=== PATIENT | male | born 1955 | race Caucasian/White ===

== ENCOUNTER 2016-08-26 14:00 | Outpatient (RCR) | payer BC ==
[2016-06-03 16:42] VITALS: BP 155/95; PULSE 58; TEMP 98
[2016-06-17 15:41] VITALS: BP 144/78; PULSE 69; TEMP 98.2
[2016-07-02 15:06] VITALS: BP 151/81; PULSE 63; TEMP 97.5
[2016-07-15 17:07] VITALS: BP 149/76; PULSE 52; TEMP 98.3
[2016-07-29 14:52] VITALS: BP 130/78; PULSE 70; TEMP 98.1
[2016-08-09 10:37] VITALS: BP 135/79; PULSE 58; TEMP 98
[~2016-08-26] VITALS: Ht 182.9 cm; Wt 85.5 kg
[~2016-08-26 14:00] MED LIST: 00186-0372-20 IH; AMOXICILLIN 8751 TAB PO; ASPIRIN E.C. 8181 MG PO; CALCIUM 600MG+D1 TAB PO; GENTAMICIN180 MG/502 NS; LEVAQUIN 5500 MG/TA1 PO; LEVAQUIN 750MG750 M1 PO; MAXIDEX NAS; MEDROL4 MG PO; MUCINEX 60600 MG/TA1 PO; MUCINEX1200 MG PO; NASONEX SPRAY17 GM NAS; PATANOL OPHTHALM5 ML OU; PHENERGAN W/CO120 M1; PHENERGAN W/CO120 M1 PO; PREDNISONE20 MG; PREDNISONE20 MG PO; PRIL40 PO; RHINOCORT0.032 MG/1 NS; RT SPIRIVA18 MCG IH; SINGULAIR 110 MG/TAB PO; VENTOLIN0.09 MG IH; VITAMIN D 400400 IU PO; ZESTRIL 5MG5 MG PO; ZITHROMAX 250M250 MG PO; ZYRTEC 10MG10 MG PO
[2016-08-26 14:26] VITALS: BP 150/85; PULSE 62; TEMP 98.6
== END 2016-09-01 | disposition home or self-care (01) ==
LOC: EUO
DX: Z79.899 Other long term (current) drug therapy (principal)
CPT/HCPCS: J2357

== ENCOUNTER 2016-12-03 15:30 | Outpatient (RCR) | payer BC ==
[2016-09-09 15:00] VITALS: BP 137/70; PULSE 65; TEMP 98.3
[2016-09-23 15:26] VITALS: BP 132/78; PULSE 61; TEMP 97.5
[2016-10-07 08:45] VITALS: BP 141/81; PULSE 55; TEMP 98.3
[2016-10-22 14:47] VITALS: BP 130/76; PULSE 71; TEMP 97.8
[2016-11-01 10:01] VITALS: BP 147/98; PULSE 61; TEMP 97.6
[2016-11-18 14:49] VITALS: BP 137/75; PULSE 58; TEMP 97.2
[~2016-12-03] VITALS: Ht 182.9 cm; Wt 81.8 kg
[2016-12-03 16:20] VITALS: BP 133/81; PULSE 54; TEMP 98.4
== END 2016-12-08 | disposition home or self-care (01) ==
LOC: EUO
DX: J45.40 Moderate persistent asthma, uncomplicated (principal)
CPT/HCPCS: J2357

== ENCOUNTER 2017-03-11 13:30 | Outpatient (RCR) | payer BC ==
[2016-12-16 15:09] VITALS: BP 157/92; PULSE 61; TEMP 97.7
[2016-12-30 15:06] VITALS: BP 137/78; PULSE 61; TEMP 98.4
[2017-01-16 08:48] VITALS: BP 137/87; PULSE 65; TEMP 98.3
[2017-01-30 14:34] VITALS: BP 150/92; PULSE 61; TEMP 98.2
[2017-02-13 14:15] VITALS: BP 128/74; PULSE 64; TEMP 98
[2017-02-27 13:43] VITALS: BP 153/77; PULSE 56; TEMP 97.8
[~2017-03-11] VITALS: Ht 182.9 cm; Wt 87.7 kg
[2017-03-11 14:26] VITALS: BP 139/80; PULSE 63; TEMP 97.6
[2017-03-27] MEDS ORDERED: LEXAPRO 10MG10 MG PO (14:30)
== END 2017-03-16 ==
LOC: EUO
DX: J45.40 Moderate persistent asthma, uncomplicated (principal); Z79.899 Other long term (current) drug therapy
CPT/HCPCS: J2357

== ENCOUNTER 2017-05-22 13:30 | Outpatient (RCR) | payer BC ==
[2017-03-27 14:23] VITALS: BP 151/87; PULSE 61; TEMP 98
[2017-04-10 14:34] VITALS: BP 151/82; PULSE 59; TEMP 97.9
[2017-04-24 14:30] VITALS: BP 135/73; PULSE 63; TEMP 98.6
[~2017-05-22] VITALS: Ht 182.9 cm; Wt 87.9 kg
[~2017-05-22 13:30] MED LIST changes: +LEXAPRO 10MG10 MG PO
[2017-05-22 13:42] VITALS: BP 167/79; PULSE 56; TEMP 98.5
== END 2017-05-22 14:53 | disposition home or self-care (01) ==
LOC: EUO 13:30
DX: Z79.899 Other long term (current) drug therapy (principal)
CPT/HCPCS: J2357

== ENCOUNTER 2017-09-04 13:30 | Outpatient (RCR) | payer BC ==
[2017-06-10 15:02] VITALS: BP 147/76; PULSE 65; TEMP 98.8
[2017-06-24 13:54] VITALS: BP 145/92; PULSE 68; TEMP 98.3
[2017-07-24 14:42] VITALS: BP 128/75; PULSE 61; TEMP 98.2
[2017-08-07 15:27] VITALS: BP 144/83; PULSE 58; TEMP 98.7
[2017-08-21 14:28] VITALS: BP 132/76; PULSE 72
[~2017-09-04] VITALS: Ht 182.9 cm; Wt 86.0 kg
[~2017-09-04 13:30] MED LIST changes: +HCTZ12.5TAB PO
[2017-09-04 14:37] VITALS: BP 134/80; PULSE 72; TEMP 98.7
== END 2017-09-04 15:22 | disposition home or self-care (01) ==
LOC: EUO 13:30
DX: Z79.899 Other long term (current) drug therapy (principal)
CPT/HCPCS: J2357

== ENCOUNTER → 2018-01-23 | Outpatient (CLI) | payer BC | LOC: COL.RAD 14:17 | DX: J98.4 Other disorders of lung (principal) ==

== ENCOUNTER 2020-09-19 14:51 | Outpatient (CLI) | payer MEDICARE ==
[~2020-09-19] VITALS: Ht 182.9 cm; Wt 82.0 kg
[~2020-09-19 14:51] MED LIST changes: +CALCIUM 600 MG1 EAC2 PO; -CALCIUM 600MG+D1 TAB PO
[2020-09-19 16:19] VITALS: BP 126/80; PULSE 62; TEMP 98.3
== END 2020-09-19 16:21 | disposition home or self-care (01) ==
LOC: EUO 14:51
DX: J45.50 Severe persistent asthma, uncomplicated (principal); Z79.899 Other long term (current) drug therapy
CPT/HCPCS: J2182

== ENCOUNTER 2020-10-17 14:58 | Outpatient (CLI) | payer MEDICARE ==
[~2020-10-17] VITALS: Ht 182.9 cm; Wt 89.4 kg
[2020-10-17] MEDS ORDERED: 00186-0370-20 IH (15:26)
[2020-10-17] MEDS ORDERED: PRIL40 PO (15:29)
[2020-10-17] MEDS ORDERED: CRESTOR20 MG PO (15:30)
[2020-10-17] MEDS ORDERED: PRINZIDE 12.5 M1 TA1 PO (15:30)
[2020-10-17] MEDS ORDERED: NUCALA100 MG/1 M SQ (15:31)
[2020-10-17] MEDS ORDERED: ALLEGRA 180MG180 MG PO (15:32)
[2020-10-17] MEDS ORDERED: ASTELIN NASAL S34 ML NS (15:33)
[2020-10-17] MEDS ORDERED: PATADAY 2.5 ML2.5 ML OU (15:33)
[2020-10-17 15:35] VITALS: BP 143/82; PULSE 53; TEMP 98.4
== END 2020-10-17 17:15 | disposition home or self-care (01) ==
LOC: EUO 14:58
DX: Z79.899 Other long term (current) drug therapy (principal)
CPT/HCPCS: J2182

== ENCOUNTER 2020-11-14 14:53 | Outpatient (CLI) | payer MEDICARE ==
[~2020-11-14] VITALS: Ht 182.9 cm; Wt 90.2 kg
[~2020-11-14 14:53] MED LIST changes: +00186-0370-20 IH; +ALLEGRA 180MG180 MG PO; +ASTELIN NASAL S34 ML NS; +CRESTOR20 MG PO; +NUCALA100 MG/1 M SQ; +PATADAY 2.5 ML2.5 ML OU; +PRINZIDE 12.5 M1 TA1 PO
[2020-11-14 15:24] VITALS: BP 123/72; PULSE 58; TEMP 97.7
[2020-11-14] MEDS ORDERED: SINGULAIR 110 MG/TAB PO (16:11)
== END 2020-11-14 16:28 | disposition home or self-care (01) ==
LOC: EUO 14:53
DX: Z79.899 Other long term (current) drug therapy (principal)
CPT/HCPCS: J2182

== ENCOUNTER 2020-12-12 12:58 | Outpatient (CLI) | payer MEDICARE ==
[~2020-12-12] VITALS: Ht 182.9 cm; Wt 88.0 kg
[2020-12-12 13:50] VITALS: BP 147/94; PULSE 53; TEMP 97.6
== END 2020-12-12 17:39 | disposition home or self-care (01) ==
LOC: EUO 12:58
DX: Z79.899 Other long term (current) drug therapy (principal)
CPT/HCPCS: J2182

== ENCOUNTER 2021-01-09 13:17 | Outpatient (CLI) | payer MEDICARE ==
[~2021-01-09] VITALS: Ht 182.9 cm; Wt 89.8 kg
[2021-01-09 13:43] VITALS: BP 133/68; PULSE 79; TEMP 98.7
== END 2021-01-09 14:06 | disposition home or self-care (01) ==
LOC: EUO 13:17
DX: Z98.890 Other specified postprocedural states (principal)
CPT/HCPCS: J2182

== ENCOUNTER 2021-02-06 13:04 | Outpatient (CLI) | payer MEDICARE ==
[~2021-02-06] VITALS: Ht 182.9 cm; Wt 88.9 kg
[2021-02-06 13:11] VITALS: BP 149/82; PULSE 52; TEMP 98.2
== END 2021-02-06 13:48 | disposition home or self-care (01) ==
LOC: EUO 13:04
DX: Z79.899 Other long term (current) drug therapy (principal)
CPT/HCPCS: J2182

== ENCOUNTER 2021-03-06 13:11 | Outpatient (CLI) | payer MEDICARE ==
[~2021-03-06] VITALS: Ht 182.9 cm; Wt 89.4 kg
[2021-03-06 13:36] VITALS: BP 163/73; PULSE 54; TEMP 98.3
== END 2021-03-06 13:48 | disposition home or self-care (01) ==
LOC: EUO 13:11
DX: Z79.899 Other long term (current) drug therapy (principal)
CPT/HCPCS: J2182

== ENCOUNTER 2021-05-02 13:06 | Outpatient (CLI) | payer MEDICARE ==
[~2021-05-02] VITALS: Ht 182.9 cm; Wt 88.0 kg
[2021-05-02 13:34] VITALS: BP 149/97; PULSE 54; TEMP 98.3
== END 2021-05-02 14:10 ==
LOC: EUO 13:06
DX: Z79.899 Other long term (current) drug therapy (principal)
CPT/HCPCS: J2182

== ENCOUNTER 2021-06-05 13:04 | Outpatient (RCR) | payer MEDICARE ==
[~2021-06-05] VITALS: Ht 182.9 cm; Wt 88.0 kg
[2021-06-05 13:28] VITALS: BP 139/76; PULSE 62; TEMP 97.6
== END 2021-06-05 14:42 | disposition home or self-care (01) ==
LOC: EUO 13:04
DX: Z79.899 Other long term (current) drug therapy (principal)
CPT/HCPCS: J2182; J2357

== ENCOUNTER 2021-07-09 13:55 | Outpatient (CLI) | payer MEDICARE ==
[~2021-07-09] VITALS: Ht 182.9 cm; Wt 90.2 kg
[2021-07-09] MEDS ORDERED: ZYRTEC 10MG10 MG PO (14:35)
[2021-07-09 14:36] VITALS: BP 145/81; PULSE 59; TEMP 98.5
== END 2021-07-09 16:01 | disposition home or self-care (01) ==
LOC: EUO 13:55
DX: Z79.899 Other long term (current) drug therapy (principal)
CPT/HCPCS: J2182

== ENCOUNTER 2021-08-06 14:07 | Outpatient (CLI) | payer MEDICARE ==
[~2021-08-06] VITALS: Ht 182.9 cm; Wt 88.9 kg
[2021-08-06 15:00] VITALS: BP 138/83; PULSE 61; TEMP 98.1
== END 2021-08-06 18:00 ==
LOC: EUO 14:07
DX: Z79.899 Other long term (current) drug therapy (principal)
CPT/HCPCS: J2182

== ENCOUNTER 2021-09-04 13:31 | Outpatient (CLI) | payer MEDICARE ==
[~2021-09-04] VITALS: Ht 182.9 cm; Wt 88.8 kg
[2021-09-04 13:54] VITALS: BP 136/81; PULSE 64; TEMP 97.6
== END 2021-09-04 14:16 | disposition home or self-care (01) ==
LOC: EUO 13:31
DX: Z51.81 Encounter for therapeutic drug level monitoring (principal)
CPT/HCPCS: J2182

== ENCOUNTER 2021-10-12 13:26 | Outpatient (CLI) | payer MEDICARE ==
[~2021-10-12] VITALS: Ht 182.9 cm; Wt 87.7 kg
[2021-10-12 14:29] VITALS: BP 116/76; PULSE 54; TEMP 98.6
== END 2021-10-16 16:45 ==
LOC: EUO 13:26
DX: Z51.81 Encounter for therapeutic drug level monitoring (principal)
CPT/HCPCS: J2182

== ENCOUNTER 2021-11-21 18:33 | Emergency (ER) | payer MEDICARE ==
[~2021-11-21] VITALS: Ht 182.9 cm; Wt 87.7 kg
[2021-11-21 19:26] LABS: BASO # 0.1 K/mm3 (0.0-0.2); BASO % 0.4 % (0.0-2.0); EOS % 0.1 % (0.0-4.0); GRAN # 12.5 K/mm3 (1.4-6.5); GRAN % 84.8 % (42.2-75.2); HEMATOCRIT 43.7 % (42.0-52.0); HEMOGLOBIN 14.8 g/dl (13.5-18.0); LYMPH # 1.3 K/mm3 (1.2-3.4); LYMPH % 9.1 % (20.0-51.0); MEAN CELL VOLUME 86 fl (80.0-100.0); MEAN CORPUSCULAR HEMOGLOBIN 29 pg (27-31); MEAN CORPUSCULAR HGB CONC 34 g/dl (33.0-37.0); MEAN PLATELET VOLUME 9.1 fl (7.4-10.4); MONO # 0.8 K/mm3 (0.1-0.6); MONO % 5.1 % (1.7-9.3); PLATELET COUNT 303 K/mm3 (130-400); RED BLOOD COUNT 5.08 M/mm3 (4.20-5.60); REDCELL DISTRIBUTION WIDTH-CV 13.7 % (11.5-14.5)
[2021-11-21 19:37] LABS: ALANINE AMINOTRANSFERASE 12 U/L (0-55); ALBUMIN 3.8 gm/dL (3.4-4.8); ALKALINE PHOSPHATASE 76 U/L (40-150); ANION GAP 13 mmol/L (7-16); AST,SGOT 17 U/L (5-34); BILIRUBIN,TOTAL 0.3 mg/dL (0.2-1.2); BLOOD UREA NITROGEN 22 mg/dL (8-26); CALCIUM 9.4 mg/dL (8.4-10.2); CARBON DIOXIDE 22 mmol/L (23-31); CHLORIDE 104 mmol/L (98-107); CREATININE, serum 1.04 mg/dL (0.72-1.25); GLUCOSE 139 mg/dL (70-99); POTASSIUM 3.5 mmol/L (3.5-4.5); SODIUM 139 mmol/L (136-145); TOTAL PROTEIN 6.9 gm/dL (6.2-8.1)
[2021-11-21 19:45] LABS: TROPONIN-I < 0.010 ng/mL (0.00-0.033)
[2021-11-21 21:31] VITALS: BP 142/90; PULSE 53; TEMP 98.9
[2021-11-21] MEDS ORDERED: NAC600 MG PO (21:41)
== END 2021-11-21 21:35 | disposition home or self-care (01) ==
LOC: COL.ER 18:33
PROVIDERS: Nurse Practitioner Primary Care
DX: J98.11 Atelectasis (principal); J98.09 Other diseases of bronchus, not elsewhere classified; B34.8 Other viral infections of unspecified site; Z88.0 Allergy status to penicillin

== ENCOUNTER 2021-11-28 09:14 | Outpatient (CLI) | payer MEDICARE ==
[~2021-11-28] VITALS: Ht 182.9 cm; Wt 87.6 kg
[~2021-11-28 09:14] MED LIST changes: +NAC600 MG PO
[2021-11-28] MEDS ORDERED: PREDNISONE10 MG PO (09:38)
[2021-11-28 09:43] VITALS: BP 155/84; PULSE 51; TEMP 98.6
== END 2021-11-28 10:00 | disposition home or self-care (01) ==
LOC: EUO 09:14
DX: Z51.81 Encounter for therapeutic drug level monitoring (principal)
CPT/HCPCS: J2182

== ENCOUNTER 2021-12-26 09:06 | Outpatient (CLI) | payer MEDICARE ==
[~2021-12-26] VITALS: Ht 182.9 cm; Wt 88.6 kg
[~2021-12-26 09:06] MED LIST changes: +PREDNISONE10 MG PO
[2021-12-26 10:02] VITALS: BP 144/81; PULSE 53; TEMP 97.6
== END 2021-12-26 10:03 ==
LOC: EUO 09:06
DX: Z51.81 Encounter for therapeutic drug level monitoring (principal)
CPT/HCPCS: J2182

== ENCOUNTER 2022-01-23 13:16 | Outpatient (CLI) | payer MEDICARE ==
[2022-01-23] MEDS ORDERED: FLONASEALLERGY NS (13:54)
[2022-01-23 13:56] VITALS: BP 132/78; PULSE 60; TEMP 97.9
== END 2022-01-23 14:11 ==
LOC: EUO 13:16
DX: Z51.81 Encounter for therapeutic drug level monitoring (principal)
CPT/HCPCS: J2182

== ENCOUNTER 2022-02-20 13:09 | Outpatient (CLI) | payer MEDICARE ==
[~2022-02-20] VITALS: Ht 182.9 cm; Wt 88.0 kg
[~2022-02-20 13:09] MED LIST changes: +FLONASEALLERGY NS
[2022-02-20 13:28] VITALS: BP 139/74; PULSE 85; TEMP 97.8
== END 2022-02-20 14:05 ==
LOC: EUO 13:09
DX: Z79.899 Other long term (current) drug therapy (principal)
CPT/HCPCS: J2182

== ENCOUNTER 2022-03-20 15:52 | Outpatient (CLI) | payer MEDICARE ==
[~2022-03-20] VITALS: Ht 182.9 cm; Wt 86.5 kg
[2022-03-20 13:46] VITALS: BP 147/87; PULSE 56; TEMP 98.3
[~2022-03-20 15:52] MED LIST changes: +MOBIC 7.5MG7.5 MG PO
== END 2022-03-20 15:54 ==
LOC: EUO 15:52
DX: Z79.899 Other long term (current) drug therapy (principal)
CPT/HCPCS: J2182